=== PATIENT | male | born 1945 | race Caucasian/White ===

== ENCOUNTER 2017-09-29 12:47 | Emergency (ER) | payer MEDICARE ==
[2011-04-05 09:18] VITALS: BMI 26.5
[2017-09-29 16:06] LABS: BASOPHILS 0.2 % (0-2); EOSINOPHILS 2.3 % (0-7); HEMATOCRIT 40.8 % (42.0-54.0); HEMOGLOBIN 14.1 g/dL (13.5-17.5); IMMATURE GRANULOCYTES 0.5 % (0-5); LYMPHOCYTES 17.6 % (15-50); MCH 33.3 pg (26.0-34.0); MCHC 34.6 g/dL (31.0-37.0); MCV 96.2 fL (80.0-100.0); MEAN PLATELET VOLUME 8.9 fL (7.4-10.4); MONOCYTES 14.4 % (2-11); PLATELET COUNT 167 10x3/uL (130-400); RBC 4.24 10x6/uL (4.20-6.10); RDW 12.4 % (11.5-14.5); WBC 8.3 10x3/uL (4.8-10.8)
[2017-09-29 17:10] LABS: ALBUMIN 3.5 g/dL (3.4-5.0); ALKALINE PHOSPHATASE 114 U/L (46-116); ALT (SGPT) 27 U/L (10-68); BILIRUBIN - TOTAL 0.47 mg/dL (0.2-1.3); CALC OSMOLALITY 268 mosm/kg (275-300); CALCIUM 8.8 mg/dL (8.5-10.1); CARBON DIOXIDE 27.5 mmol/L (21.0-32.0); CHLORIDE - SERUM 99 mmol/L (98-107); CREATININE - SERUM 0.9 mg/dL (0.6-1.3); GLUCOSE 102 mg/dL (74-106); POTASSIUM - SERUM 3.8 mmol/L (3.5-5.1); PROTEIN - SERUM 7.5 g/dL (6.4-8.2); SODIUM 135 mmol/L (136-145); UREA NITROGEN 10 mg/dL (7-18); eGFR NON AFRICAN AMERICAN 89 mL/min (90-120)
[2017-09-30] MEDS ORDERED: ZYLOPRIM300 MG PO (07:53)
[2017-09-30] MEDS ORDERED: CARDIZEM CD180 MG PO (07:55)
[2017-09-30] MEDS ORDERED: NIASPAN1000 MG PO (07:55)
[2017-09-30] MEDS ORDERED: VYTORIN 10-20 M1 TAB PO (07:55)
[2017-09-30] MEDS ORDERED: XARELTO20 MG PO (07:56)
== END 2017-09-29 18:05 | disposition home or self-care (01) ==
LOC: D.ER 12:47
PROVIDERS: Physician Assistant
DX: J20.9 Acute bronchitis, unspecified (principal); R91.8 Other nonspecific abnormal finding of lung field; F17.200 Nicotine dependence, unspecified, uncomplicated

== ENCOUNTER 2017-09-30 16:13 | Outpatient (CLI) | payer MEDICARE ==
[2011-04-05 09:18] VITALS: BMI 26.5
[~2017-09-30 16:13] MED LIST: CARDIZEM CD180 MG PO; NIASPAN1000 MG PO; VYTORIN 10-20 M1 TAB PO; XARELTO20 MG PO; ZYLOPRIM300 MG PO
== END 2017-09-30 16:14 | disposition home or self-care (01) ==
LOC: D.OPS 16:13 → D.PAN 10-03 08:15 → EDSTATUS 10-03 08:15 → D.OPS 10-03 08:15
DX: M65.30 Trigger finger, unspecified finger (principal); Z01.810 Encounter for preprocedural cardiovascular examination; Z01.811 Encounter for preprocedural respiratory examination; Z01.812 Encounter for preprocedural laboratory examination; Z53.9 Procedure and treatment not carried out, unspecified reason

== ENCOUNTER 2018-02-02 06:45 | Day surgery (SDC) | payer MEDICARE, OTHER ==
[2018-02-01 09:45] LABS: HEMATOCRIT 40.5 % (42.0-54.0); MCH 32.6 pg (26.0-34.0); MCHC 34.6 g/dL (31.0-37.0); MCV 94.2 fL (80.0-100.0); MEAN PLATELET VOLUME 8.1 fL (7.4-10.4); RBC 4.3 10x6/uL (4.20-6.10); RDW 13.1 % (11.5-14.5); WBC 5.1 10x3/uL (4.8-10.8)
[~2018-02-02] VITALS: Ht 180.3 cm; Wt 83.9 kg
--- NOTE | ~2018-02-02 | OP ---
PATIENT NAME: SUNITA WERNER MEDICAL RECORD: [id number] :49 LOCATION:D.OPS ADMISSION DATE: SURGEON: DIOGENES ELIAS MD DATE OF OPERATION: 02/02/2018 PREOPERATIVE DIAGNOSES: 1. Right hand trigger finger, index finger. 2. Left hand trigger finger, long finger. POSTOPERATIVE DIAGNOSES: 1. Right hand trigger finger, index finger. 2. Left hand trigger finger, long finger. PROCEDURE: 1. A1 vinny release, right-hand trigger finger, index finger. 2. A1 vinny release, left hand trigger finger, long finger. SURGEON: Diognees Elias MD ANESTHESIA: General. INTRAOPERATIVE COMPLICATIONS: None. SUMMARY OF PATHOLOGIC FINDINGS: Each side had some excoriated changes of the tendon. No full thickness tendon was tearing. The patient had a very tight A1 vinny. OPERATIVE SUMMARY IN DETAIL: After obtaining the appropriate preoperative orthopedic surgery consent as well as anesthetic consultation, evaluation and clearance, the patient was brought to the operating room and placed on the operating table in supine position. After general laryngeal mask airway was administered, tourniquet was placed about the proximal aspect of the right upper extremity. Left upper extremity had the IV and then an Esmarch bandage was essentially used as a tourniquet. Bilateral upper extremities were prepped and draped in routine sterile fashion. Attention was first turned to the right hand. The right hand was elevated and exsanguinated, tourniquet was inflated to 250 mmHg. The incision was made over the base of the index metacarpal of the right hand, taken down to the level of the A1 vinny and under direct visualization, the A1 vinny was released. Tendon was expected, above findings were noted. The wound was irrigated and closed with 4-0 Prolene in interrupted fashion. The area was infiltrated locally with 0.25% Marcaine plain. This was covered with a sterile towel. Attention was turned to the left upper extremity. Left upper extremity was elevated, exsanguinated with the Esmarch bandage. The Esmarch bandage was clamped into place and left as a tourniquet. Incision was made at the base of the left long finger. Careful dissection down to the base of the left long finger MCP joint revealed the A1 vinny to be tight and stenotic. It was released in its entirety and again the tendon findings as noted above. The wound was irrigated and closed with 4-0 Prolene in routine interrupted fashion. The area was again locally infiltrated with 0.25% Marcaine plain. Sterile dressings were applied. Both tourniquets were taken down. The patient was awakened, taken to recovery room in stable condition. All final needle and sponge counts were correct. TRANSINT:[id number] Voice Confirmation ID: [id number] DOCUMENT ID: [id number] OPERATIVE REPORT [id number] SUNITA WERNER MD, DIOGENES VALENCIA at 1356 CC: [id number] DICTATION DATE: 02/02/18 1037 ACCOUNTANT SYSTEMS: 02/02/18 1108 [facility] 02/02/[address] [address]
[2018-02-02 07:22] VITALS: BP 142/73; Ht 180.3 cm; Wt 83.9 kg
[2018-02-02] MEDS ORDERED: HYDROCODONE-APA1 TAB PO (10:35)
== END 2018-02-02 12:37 | disposition home or self-care (01) ==
LOC: D.OPS 06:45 → D.PAN 09:30 → D.OPS 09:45 → D.PAN 11:40 → D.OPS 12:15
PROVIDERS: Anesthesiology
DX: M65.321 Trigger finger, right index finger (principal); M65.332 Trigger finger, left middle finger; I10 Essential (primary) hypertension; E78.5 Hyperlipidemia, unspecified; Z01.812 Encounter for preprocedural laboratory examination

== ENCOUNTER → 2018-06-23 08:41 | Outpatient (CLI) | payer OTHER ==
[2018-02-02 07:22] VITALS: BMI 26.5
[~2018-06-23 08:41] MED LIST changes: +HYDROCODONE-APA1 TAB PO
== END | disposition home or self-care (01) ==
LOC: D.RT 06-01 14:00
DX: C34.90 Malignant neoplasm of unspecified part of unspecified bronchus or lung (principal)

== ENCOUNTER 2019-02-01 09:25 | Day surgery (SDC) | payer MEDICARE, OTHER ==
[~2019-02-01] VITALS: Ht 180.3 cm; Wt 83.9 kg
[2019-02-01 11:10] VITALS: BP 146/77; Ht 180.3 cm; Wt 83.9 kg
[2019-02-01 11:16] LABS: BASOPHILS 0.3 % (0-2); EOSINOPHILS 1.9 % (0-7); HEMOGLOBIN 14.9 g/dL (13.5-17.5); IMMATURE GRANULOCYTES 0.4 % (0-5); LYMPHOCYTES 20.5 % (15-50); MCH 33.7 pg (26.0-34.0); MCHC 35.5 g/dL (31.0-37.0); MEAN PLATELET VOLUME 8.4 fL (7.4-10.4); MONOCYTES 16.5 % (2-11); NEUTROPHILS 60.4 % (40-80); PLATELET COUNT 157 10x3/uL (130-400); RBC 4.42 10x6/uL (4.20-6.10); RDW 12.5 % (11.5-14.5); WBC 6.9 10x3/uL (4.8-10.8)
[2019-02-01] MEDS ORDERED: HYDROCODON-ACE1 EA10 PO (12:50)
--- NOTE | 2019-02-01 14:22 | NUR ---
RIGHT HAND PIV DC'D WITH TIP INTACT. PATIENT DRESSING IN PERSONAL CLOTHING. PATIENT AMBULATING AROUND ROOM WITHOUT UNSTEADINESS OR DIZZINESS 1638 DISCHARGE INSTRUCTIONS REVIEWED WITH PATIENT AND SPOUSE. SPOUSE ASKS IF PATIENT NEEDS A SLING, EDUCATED THAT PATIENT MAY USE A SLING IF HE DESIRES AND IS GOING TO BE UP AND AROUND A LOT BUT HE DOESN'T HAVE TO USE ONE. A SLING IS OFFERED TO PATIENT AT THIS TIME BY THIS NURSE, PATIETN DECLINES AND STATES HE HAS ONE AT HOME HE CAN USE IF HE DECIDES HE NEEDS IT. DISCHARGED HOME VIA WHEELCHAIR TO PRIVATE VEHICLE WITH SPOUSE
--- NOTE | 2019-02-02 11:22 | OP ---
PATIENT NAME: SUNITA WERNER MEDICAL RECORD: [id number] :49 LOCATION:D.OPS ADMISSION DATE: SURGEON: DIOGENES ELIAS MD DATE OF OPERATION: 02/01/2019 PREOPERATIVE DIAGNOSES: 1. Carpal tunnel syndrome of the left wrist. 2. 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 POSTOPERATIVE DIAGNOSES: 1. Carpal tunnel syndrome of the left wrist. 2. 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 PROCEDURE: 1. Carpal tunnel release of the left wrist. 2. Cubital tunnel release of the left elbow. SURGEON: Diogenes Elias MD TESTER PRINTED CIRCUIT BOARDS: Jarred Raymond. INTRAOPERATIVE COMPLICATIONS: None. SUMMARY OF PATHOLOGIC FINDINGS: The patient has a very tight transverse carpal ligament consistent with the diagnosis of carpal tunnel syndrome as well as cubital tunnel syndrome, also had a very tight cubital tunnel consistent with EMGs and NCVs. OPERATIVE SUMMARY IN DETAIL: After obtaining appropriate preoperative orthopedic surgery consent as well as anesthetic consultation, evaluation and clearance, the patient was brought to the operating room and placed on the operating table in supine position. After adequate general laryngeal mask airway was administered, tourniquet was placed on the proximal aspect of the left upper extremity. Left upper extremity was then prepped and draped in routine sterile fashion. At this point, appropriate timeout was taken and agreed upon by all after the appropriate patient identifiers were agreed upon by all. The arm was elevated and exsanguinated, tourniquet was inflated to 250 mmHg. Attention was first turned to the carpal tunnel incision, which was made in line of the fourth metacarpal ray in the mid palmar space taken down to the level of transverse carpal ligament distally, which was incised to expose the median nerve. Median nerve was then covered with the Weston elevator for protection. It was then released in its entirety, both under direct visualization with both the scalpel as well as the endoscopic light knife from [employer]. Having completed this, the wound was irrigated and closed with 4-0 Prolene in interrupted fashion. Appropriate analgesia was provided about the incision site with 0.25% Marcaine. Having completed this, attention was turned to the medial aspect of the elbow. Incision was made through the medial epicondyle and the olecranon tip. Careful dissection was carried down to the level of the nerve, which was identified in its entirety. Multiple bands were taken down very gently and then the nerve was freed up in its entirety, approximately 5 cm distally and 5 cm proximally to the incision. Having completed this, the wound was irrigated and closed by GAYE Roberts with a combination of 2-0 Vicryl and 4-0 Prolene. Sterile dressings were applied. Tourniquet was deflated. The patient was awakened, taken to recovery room in stable condition. All final needle and sponge counts were correct. OPERATIVE REPORT [id number] SUNITA WERNER TRANSINT:[id number] Voice Confirmation ID: [id number] DOCUMENT ID: [id number] JADA GALVAN, DIOGENES VALENCIA at 1122 CC: [id number] DICTATION DATE: 02/01/19 1311 MOTOR ASSEMBLY SUPERVISOR: 02/01/19 1323 [facility] 02/01/19 [id number] [place] [address]
== END 2019-02-01 14:28 | disposition home or self-care (01) ==
LOC: D.OPS 09:25 → D.PAN 18:30 → D.OPS 18:30
PROVIDERS: ATTEND Orthopaedic Surgery
DX: G56.02 Carpal tunnel syndrome, left upper limb (principal); G56.22 Lesion of ulnar nerve, left upper limb; Z01.812 Encounter for preprocedural laboratory examination

== ENCOUNTER 2019-05-24 08:55 | Day surgery (SDC) | payer MEDICARE, OTHER ==
[2019-05-23 09:42] LABS: APTT 27.1 SECONDS (22.8-39.4); INR 0.95 (0.85-1.17); PROTIME 12.2 SECONDS (11.6-15.0)
[~2019-05-24] VITALS: Ht 180.3 cm; Wt 83.9 kg
[~2019-05-24 08:55] MED LIST changes: +CLARITIN 10 MG10 MG PO; +HYDROCODON-ACE1 EA10 PO
[2019-05-24 09:39] VITALS: BP 154/81; Ht 180.3 cm; Wt 83.9 kg
[2019-05-24] MEDS ORDERED: HYDROCODON-ACE1 EA10 PO (11:58)
--- NOTE | 2019-05-24 14:40 | NUR ---
1350-DISCHARGE CRITERIA MET. REMOVED IV WITH CATH INTACT, DISPOSED INTO SHARPS. COVERED SITE WITH BANDAID. REVIEWED POST OPERATIVE INSTRUCTIONS WITH PT. VERBALIZED UNDERSTANDING. ESCORTED OUT VIA W/C WITH SPOUSE AWAITING TO DRIVE HOME.
--- NOTE | 2019-06-05 15:11 | OP ---
PATIENT NAME: SUNITA WERNER MEDICAL RECORD: [id number] :49 LOCATION:D.OPS ADMISSION DATE: SURGEON: DIOGENES ELIAS MD DATE OF OPERATION: 05/24/2019 PREOPERATIVE DIAGNOSIS: Trigger finger of the right hand third and fourth metacarpal. POSTOPERATIVE DIAGNOSIS: Trigger finger of the right hand third and fourth metacarpal. PROCEDURE: 1. Trigger finger release of the right third metacarpal. 2. Trigger finger release of the right fourth metacarpal. SURGEON: Diogenes Elias MD ANESTHESIA: General. INTRAOPERATIVE COMPLICATIONS: None. SUMMARY OF PATHOLOGIC FINDINGS: The patient had substantial thickening of the tendon with nodules created. They were released without difficulty and there was no full thickness flexor tendon tearing. OPERATIVE SUMMARY IN DETAIL: After obtaining the appropriate preoperative orthopedic surgery consent as well as anesthetic consultation, evaluation and clearance, the patient was brought to the operating room and placed on the operating table in supine position. After adequate general laryngeal mask airway was administered and the appropriate timeout was taken and agreed upon by all, the left arm was elevated and exsanguinated, tourniquet was inflated to 250 mmHg. A single incision was made between the third and fourth metacarpal bases to allow for direct exposure of the A1 pulleys without disturbing the neurovascular structures. A1 vinny was dissected down on the third finger first and was released in its entirety. The tendon was examined and found to have attritional changes, but no full thickness tearing. Attention was then turned to the A1 vinny of the fourth finger. Again, dissection was carried down. The digital nerves were again held medially and laterally. The A1 vinny was retracted in its entirety. The A1 vinny was incised in its entirety and both fingers were then free to excurse without triggering. Wounds were irrigated and closed with 4-0 Prolene. The area was locally infiltrated with 0.25% Marcaine plain. Sterile dressings were applied. Tourniquet was deflated. The patient was awakened and taken to recovery room in stable condition. All final needle and sponge counts were correct. TRANSINT:[id number] Voice Confirmation ID: [id number] DOCUMENT ID: [id number] OPERATIVE REPORT [id number] ALPHONSO,SUNITA ELIAS MD, DIOGENES VALENCIA at 1511 CC: [id number] DICTATION DATE: 06/05/19 0827 CABINET INSTALLER: 06/05/19 1006 [facility] [place] 05/24/19 [place] [id number] [place] [id number]
== END 2019-05-24 13:50 | disposition home or self-care (01) ==
LOC: D.OPS 08:55 → D.PAN 09:00 → D.OPS 09:00 → D.PAN 11:20 → D.OPS 13:50
PROVIDERS: Anesthesiology; ATTEND Orthopaedic Surgery
DX: M65.331 Trigger finger, right middle finger (principal); M65.341 Trigger finger, right ring finger